=== PATIENT | male | born 1945 | race Caucasian/White ===

== ENCOUNTER 2018-06-08 19:43 | Inpatient (IN) | payer MEDICARE, BC ==
[~2018-06-08] VITALS: Ht 190.5 cm; Wt 111.6 kg
[2018-06-08 22:30] VITALS: BP 141/82
[2018-06-08 22:35] VITALS: BP 141/82
--- NOTE | 2018-06-08 22:50 | NUR ---
GPS-RN ADMITTED A 73-Y/O MALE, DIRECT ADMIT FROM [facility]. ON HOLD FOR 5150 DTO AND GD. PER HOLD PATIENT'S CALLED POLICE BECAUSE PATIENT WAS PARANOID, GRANDIOSE, ABUSIVE AND SAYING HE WAS GOD. UPON EVAL THERE, PT REPORTED TO BE CONFUSED, DISORIENTED AND UNABLE TO CARE FOR HIMSELF. UPON ADMISSION PATIENT APPEARS TO BE ALERT, ORIENTED X1, ANXIOUS, STATED HE DOES NOT RECALL BEING ABUSIVE TO HIS AND DOES NOT KNOW WHY HE IS ADMITTED. DENIES HALLUCINATIONS, SI, HI. NO ACUTE DISTRESS NOTED. CONTINENT OF BOWEL AND BLADDER. NO C/O PAIN OR DISCOMFORT AT THIS TIME. AMBULATORY WITH A STEADY GAIT. BELONGINGS INVENTORIED AND CHECKED FOR CONTRABAND. REVIEWED PATIENT'S RIGHTS AND VERBALIZED UNDERSTANDING. PATIENT IS UNDER THE PSYCHIATRIC CARE OF DR. RASCON, ORDERS OBTAINED, AND UNDER THE MEDICAL CARE OF JENNIFER EMERSON. NOTIFIED OF ADMISSION AND MED RECON TO BE DONE. SKIN NOTED MULTIPLE SCABBED AREAS AND BLISTER ON RIGHT LITTLE TOE, PATIENT STATES HE HAS NOT FALLEN BUT BLEEDS EASILY. MRSA SCREENING NEEDS TO BE DONE. BED LOCKED AND PLACED IN LOWEST POSITION. ROOM SAFETY CHECKED. FALL PRECAUTIONS MAINTAINED. WILL CONTINUE TO MONITOR Q15MIN ROUNDS FOR SAFETY AND BEHAVIOR. PT STATED HE WILL CALL AND NOTIFY HIS OF ADMISSION IN MORNING.
[2018-06-08] MEDS ORDERED: MAG HYDROX/AL HYDROX/SIMETH 30 ML UDC PO PRN (23:00)
[2018-06-08] MEDS ORDERED: MAGNESIUM HYDROXIDE 30 ML UDC PO PRN (23:00)
[2018-06-08] MEDS ORDERED: LORAZEPAM 0.5 MG TABLET PO PRN (23:00)
[2018-06-09] MEDS ORDERED: ATOR40TA PO (01:21)
[2018-06-09] MEDS ORDERED: ALLO100T PO (01:21)
[2018-06-09] MEDS ORDERED: ARMO250T2 PO (01:21)
[2018-06-09] MEDS ORDERED: LEVO137T24 PO (01:21)
[2018-06-09] MEDS ORDERED: ATOR20TA PO (01:21)
[2018-06-09] MEDS ORDERED: DIVA500T2 PO (01:21)
[2018-06-09] MEDS ORDERED: GABA-534 PO (01:21)
[2018-06-09] MEDS ORDERED: SOLI10TA2 PO (01:21)
[2018-06-09] MEDS ORDERED: RIVA10TA PO (01:21)
[2018-06-09 08:00] VITALS: BP 141/98
[2018-06-09 08:53] LABS: BASOPHILS % (AUTO) 0.4 % (0.0-2.0); EOSINOPHILS % (AUTO) 1.9 % (0.0-6.0); HEMATOCRIT 43 % (39-51); HEMOGLOBIN 14.1 g/dL (13.5-17.5); LYMPHOCYTES # (AUTO) 1.9 /CMM (0.8-4.8); LYMPHOCYTES % (AUTO) 28.9 % (20.0-44.0); MEAN CORPUSCULAR HEMOGLOBIN 32 PG (26.0-33.0); MEAN CORPUSCULAR HGB CONC 33 g/dl (31.0-36.0); MEAN CORPUSCULAR VOLUME 97 fL (80-96); MONOCYTES # (AUTO) 0.5 /CMM (0.1-1.30); MONOCYTES % (AUTO) 7.7 % (2.0-12.0); NEUTROPHILS # (AUTO) 4.1 /CMM (1.8-8.9); NEUTROPHILS % (AUTO) 61.1 % (43.0-81.0); PLATELET COUNT (AUTO) 204 /CMM (150-450); RDW COEFFICIENT OF VARIATION 14.8 (11.5-15.0); RED BLOOD CELL COUNT(AUTO) 4.46 MIL/uL (4.5-6.0); WHITE BLOOD COUNT (AUTO) 6.7 K/uL (4.3-11.0)
[2018-06-09] MEDS: ALLOPURINOL 100 MG TABLET PO SCH ×2 (08:57→16:22)
[2018-06-09] MEDS: LEVOTHYROXINE SODIUM 137 MCG TABLET PO SCH (08:57)
[2018-06-09] MEDS ORDERED: SOLIFENACIN SUCCINATE 5 MG TABLET PO SCH (09:00)
[2018-06-09] MEDS ORDERED: GABAPENTIN 300 MG CAPSULE PO SCH (09:00)
[2018-06-09 10:09] LABS: CHOLESTEROL 183 mg/dL (<200); HDL CHOLESTEROL 41 mg/dL (40-60); LDL 101 mg/dL (0-99); TRIGLYCERIDES 204 mg/dL (30-150)
[2018-06-09 10:10] LABS: ALANINE AMINOTRANSFERASE 30 U/L (12-78); ALBUMIN 3.4 g/dL (3.4-5.0); ALKALINE PHOSPHATASE 91 U/L (46-116); ASPARTATE AMINOTRANSFERASE 28 U/L (15-37); BILIRUBIN,TOTAL 0.4 mg/dL (0.2-1.0); CARBON DIOXIDE 31 mmol/L (21-32); CHLORIDE 103 mmol/L (98-107); CREATININE 1.5 mg/dL (0.6-1.3); GLUCOSE 140 mg/dL (74-106); POTASSIUM 4.7 mmol/L (3.5-5.1); SODIUM SERUM 141 mmol/L (136-145); TOTAL PROTEIN, SERUM 7.5 g/dL (6.4-8.2); UREA NITROGEN, BLOOD 28 mg/dL (7-18)
[2018-06-09] MEDS ORDERED: QUET100T PO (11:56)
[2018-06-09] MEDS ORDERED: MEMA1CAP3 PO (11:56)
[2018-06-09] MEDS ORDERED: CARI3CAP PO (11:56)
[2018-06-09] MEDS ORDERED: myrbetriq PO (11:56)
[2018-06-09] MEDS ORDERED: ALLO300T2 PO (11:56)
[2018-06-09] MEDS ORDERED: OMEP40CA37 PO (11:56)
[2018-06-09] MEDS: DIVALPROEX SODIUM 500 MG TABLET.DR PO SCH ×2 (12:44→21:39)
--- NOTE | 2018-06-09 14:10 | NUR ---
GPS/RN C-PAP MACHINE CHECKED BY RT AND FOUND TO BE OPERATIONAL. DR BURTON MADE AWARE OF THE PT'S NEED FOR C-PAP MACHINE AND APPROVED. THE BEHAVIOR CLINICIAN LINDA MADE AWARE OF NEED FOR THE SITTER AT NIGHT.
--- NOTE | 2018-06-09 14:52 | NUR ---
GPS RN NOTE: PT INSTRUCTED TO BRING HOME MEDICATIONS
[2018-06-09 16:11] VITALS: BP 114/66
[2018-06-09] MEDS: RIVAROXABAN 10 MG TABLET PO SCH (16:21)
[2018-06-09] MEDS: GABAPENTIN 300 MG CAPSULE PO SCH (16:22)
[2018-06-09] MEDS: MEMANTINE HCL 5 MG TABLET PO SCH (16:22)
[2018-06-09] MEDS: ATORVASTATIN 40 MG TABLET PO SCH (17:30)
[2018-06-09] MEDS: ACETAMINOPHEN 325 MG TABLET PO PRN (19:58)
[2018-06-09] MEDS ORDERED: CARIPRAZINE HCL 3 MG PO SCH (20:00)
[2018-06-09] MEDS ORDERED: Medication Not On Formulary EA (Memantine HCl/Donepezil HCl (Namzaric 28 mg-10 mg Capsul PO SCH (20:00)
[2018-06-09 20:03] VITALS: BP 125/55
--- NOTE | 2018-06-09 20:15 | NUR ---
GPS RN NOTE: PT ALERT ORIENTED X 3, CALM COOPERATIVE, FOCUSED ON RIGHT FOOT PAIN WITHOUT OTHER COMPLAINTS. DENIES SI/HI/HALLUCINATIONS. ICE PACK TO RIGHT FOOT FOR 15 MINUTES PRN. WILL CONTINUE TO MONITOR Q 15 FOR COMFORT AND SAFETY.
--- NOTE | 2018-06-09 21:00 | NUR ---
PT. C/O MILD PAIN 01/12 RT FOOT SWELLING, ICE PACKS APPLIED PER PT REQUEST AND TYLENOL 650MG PO PRN AT 1999 WITH RELIEF.
[2018-06-09] MEDS: DONEPEZIL 5 MG TABLET PO SCH (21:40)
[2018-06-09] MEDS: QUETIAPINE FUMARATE 100 MG TABLET PO SCH (21:40)
--- NOTE | 2018-06-09 22:30 | NUR ---
PT WITH OWN CPAP MACHINE FOR SLEEP WITH 1:1 SITTER PER GPS POLICY.
--- NOTE | 2018-06-10 06:52 | NUR ---
ICE PACKS PER PATIENT REQUEST TO RIGHT ANKLE FOR SWELLING.
[2018-06-10 08:00] VITALS: BP 122/78
[2018-06-10] MEDS: GABAPENTIN 300 MG CAPSULE PO SCH ×2 (08:48→17:31)
[2018-06-10] MEDS: DIVALPROEX SODIUM 500 MG TABLET.DR PO SCH ×2 (08:49→20:57)
[2018-06-10] MEDS: ALLOPURINOL 100 MG TABLET PO SCH ×2 (08:49→17:31)
[2018-06-10] MEDS: MEMANTINE HCL 5 MG TABLET PO SCH ×2 (08:49→17:31)
[2018-06-10] MEDS: OXYBUTYNIN CHLORIDE 5 MG TABLET PO SCH ×3 (08:49→17:32)
[2018-06-10] MEDS: LEVOTHYROXINE SODIUM 137 MCG TABLET PO SCH (08:50)
[2018-06-10] MEDS ORDERED: FUROSEMIDE 40 MG TABLET PO ONE (12:00)
[2018-06-10 16:10] VITALS: BP 155/83
[2018-06-10] MEDS: RIVAROXABAN 10 MG TABLET PO SCH (17:33)
[2018-06-10] MEDS: ATORVASTATIN 40 MG TABLET PO SCH (18:16)
[2018-06-10 19:58] VITALS: BP 138/64
[2018-06-10] MEDS: ACETAMINOPHEN 325 MG TABLET PO PRN (20:57)
[2018-06-10] MEDS: QUETIAPINE FUMARATE 100 MG TABLET PO SCH (21:22)
[2018-06-10] MEDS: DONEPEZIL 5 MG TABLET PO SCH (21:22)
[2018-06-11 08:00] VITALS: BP 143/99
[2018-06-11 08:11] VITALS: BP 143/99
[2018-06-11] MEDS: NUVIGIL 250 MG PO SCH (08:30)
[2018-06-11] MEDS: DIVALPROEX SODIUM 500 MG TABLET.DR PO SCH ×2 (08:34→20:49)
[2018-06-11] MEDS: GABAPENTIN 300 MG CAPSULE PO SCH ×2 (08:34→17:29)
[2018-06-11] MEDS: LEVOTHYROXINE SODIUM 137 MCG TABLET PO SCH (08:34)
[2018-06-11] MEDS: PANTOPRAZOLE 40 MG TABLET.DR PO SCH (08:34)
[2018-06-11] MEDS: MEMANTINE HCL 5 MG TABLET PO SCH ×2 (08:35→17:29)
[2018-06-11] MEDS: OXYBUTYNIN CHLORIDE 5 MG TABLET PO SCH ×3 (08:35→17:29)
[2018-06-11] MEDS: ALLOPURINOL 100 MG TABLET PO SCH ×2 (08:35→17:29)
--- NOTE | 2018-06-11 11:29 | NUR ---
INITIAL DISCHARGE PLAN: Patient wishes to return home to [address] [place] [address] [address] [facility] [address]. SW confirmed with pts Juan Antonio Richardson [phone] who stated pt can return home once stable for discharge. SW will help form a safe and proper discharge in collaboration with .
[2018-06-11] MEDS ORDERED: FUROSEMIDE 40 MG TABLET PO ONE (13:00)
[2018-06-11] MEDS ORDERED: POTASSIUM CHLORIDE 20 MEQ POWDER PACKET PO ONE (13:00)
[2018-06-11 16:00] VITALS: BP 164/97
[2018-06-11 16:13] VITALS: BP 164/97
[2018-06-11] MEDS: ATORVASTATIN 40 MG TABLET PO SCH (17:29)
[2018-06-11] MEDS: RIVAROXABAN 10 MG TABLET PO SCH (17:43)
--- NOTE | 2018-06-11 18:04 | NUR ---
RHYS MYBETRIC ORDER CANCELED PATIENT ON DITROPAN
[2018-06-11 19:58] VITALS: BP 143/75
[2018-06-11] MEDS: DONEPEZIL 5 MG TABLET PO SCH (21:12)
[2018-06-11] MEDS: QUETIAPINE FUMARATE 100 MG TABLET PO SCH (21:12)
[2018-06-12] MEDS: ZOLPIDEM TARTRATE 5 MG TABLET PO PRN (01:55)
[2018-06-12 08:00] VITALS: BP 120/72
[2018-06-12] MEDS: LEVOTHYROXINE SODIUM 137 MCG TABLET PO SCH (08:46)
[2018-06-12] MEDS: PANTOPRAZOLE 40 MG TABLET.DR PO SCH (08:47)
[2018-06-12] MEDS: GABAPENTIN 300 MG CAPSULE PO SCH ×2 (08:47→16:49)
[2018-06-12] MEDS: MEMANTINE HCL 5 MG TABLET PO SCH ×2 (08:47→16:50)
[2018-06-12] MEDS: OXYBUTYNIN CHLORIDE 5 MG TABLET PO SCH ×2 (08:47→12:00)
[2018-06-12] MEDS: DIVALPROEX SODIUM 500 MG TABLET.DR PO SCH ×2 (08:47→22:17)
[2018-06-12] MEDS: NUVIGIL 250 MG PO SCH (08:48)
[2018-06-12] MEDS ORDERED: HOME MED MISCELLANEOUS PO SCH (09:00)
[2018-06-12] MEDS: ALLOPURINOL 100 MG TABLET PO SCH ×2 (09:14→16:50)
[2018-06-12] MEDS ORDERED: POTASSIUM CHLORIDE 20 MEQ POWDER PACKET PO ONE (09:30)
[2018-06-12] MEDS ORDERED: FUROSEMIDE 40 MG TABLET PO ONE (09:30)
[2018-06-12 16:00] VITALS: BP 134/90
[2018-06-12] MEDS: RIVAROXABAN 10 MG TABLET PO SCH (16:54)
[2018-06-12] MEDS: ATORVASTATIN 40 MG TABLET PO SCH (18:26)
[2018-06-12 20:11] VITALS: BP 134/84
[2018-06-12] MEDS: DONEPEZIL 5 MG TABLET PO SCH (22:16)
[2018-06-12] MEDS: QUETIAPINE FUMARATE 100 MG TABLET PO SCH (22:17)
[2018-06-13 07:17] LABS: ALANINE AMINOTRANSFERASE 23 U/L (12-78); ALBUMIN 3.1 g/dL (3.4-5.0); ALKALINE PHOSPHATASE 81 U/L (46-116); ASPARTATE AMINOTRANSFERASE 16 U/L (15-37); BILIRUBIN,TOTAL 0.4 mg/dL (0.2-1.0); CALCIUM, SERUM 8.5 mg/dL (8.5-10.1); CARBON DIOXIDE 35 mmol/L (21-32); CHLORIDE 104 mmol/L (98-107); CREATININE 1.4 mg/dL (0.6-1.3); GLUCOSE 112 mg/dL (74-106); POTASSIUM 4.1 mmol/L (3.5-5.1); SODIUM SERUM 142 mmol/L (136-145); TOTAL PROTEIN, SERUM 6.6 g/dL (6.4-8.2); UREA NITROGEN, BLOOD 26 mg/dL (7-18)
[2018-06-13 08:00] VITALS: BP 136/80
[2018-06-13] MEDS: LEVOTHYROXINE SODIUM 137 MCG TABLET PO SCH (08:54)
[2018-06-13] MEDS: GABAPENTIN 300 MG CAPSULE PO SCH ×2 (08:54→16:46)
[2018-06-13] MEDS: DIVALPROEX SODIUM 500 MG TABLET.DR PO SCH ×2 (08:54→21:03)
[2018-06-13] MEDS: MEMANTINE HCL 5 MG TABLET PO SCH ×2 (08:54→16:47)
[2018-06-13] MEDS: PANTOPRAZOLE 40 MG TABLET.DR PO SCH (08:54)
[2018-06-13] MEDS: ALLOPURINOL 100 MG TABLET PO SCH ×2 (08:54→16:46)
[2018-06-13] MEDS: NUVIGIL 250 MG PO SCH (09:03)
[2018-06-13 16:00] VITALS: BP 140/99
[2018-06-13] MEDS: FUROSEMIDE 20 MG TABLET PO SCH (16:46)
[2018-06-13] MEDS: POTASSIUM CHLORIDE 10 MEQ TABLET.SA PO SCH (16:46)
[2018-06-13] MEDS: RIVAROXABAN 10 MG TABLET PO SCH (16:47)
[2018-06-13] MEDS: ATORVASTATIN 40 MG TABLET PO SCH (17:00)
[2018-06-13 20:00] VITALS: BP 115/67
[2018-06-13] MEDS: QUETIAPINE FUMARATE 100 MG TABLET PO SCH (21:03)
[2018-06-13] MEDS: DONEPEZIL 5 MG TABLET PO SCH (21:03)
[2018-06-14 08:00] VITALS: BP 122/79
[2018-06-14] MEDS: GABAPENTIN 300 MG CAPSULE PO SCH ×2 (08:33→17:53)
[2018-06-14] MEDS: ALLOPURINOL 100 MG TABLET PO SCH ×2 (08:33→17:54)
[2018-06-14] MEDS: POTASSIUM CHLORIDE 10 MEQ TABLET.SA PO SCH (08:34)
[2018-06-14] MEDS: PANTOPRAZOLE 40 MG TABLET.DR PO SCH (08:34)
[2018-06-14] MEDS: MEMANTINE HCL 5 MG TABLET PO SCH ×2 (08:34→17:53)
[2018-06-14] MEDS: LEVOTHYROXINE SODIUM 137 MCG TABLET PO SCH (08:34)
[2018-06-14] MEDS: NUVIGIL 250 MG PO SCH (08:35)
[2018-06-14] MEDS: DIVALPROEX SODIUM 500 MG TABLET.DR PO SCH ×2 (08:40→21:14)
[2018-06-14] MEDS: FUROSEMIDE 20 MG TABLET PO SCH (08:40)
[2018-06-14 16:04] VITALS: BP 129/81
[2018-06-14] MEDS: ATORVASTATIN 40 MG TABLET PO SCH (17:54)
[2018-06-14] MEDS: RIVAROXABAN 10 MG TABLET PO SCH (17:56)
[2018-06-14 20:00] VITALS: BP 145/69
[2018-06-14] MEDS: ZOLPIDEM TARTRATE 5 MG TABLET PO PRN (21:14)
[2018-06-14] MEDS: QUETIAPINE FUMARATE 100 MG TABLET PO SCH (21:14)
[2018-06-14] MEDS: DONEPEZIL 5 MG TABLET PO SCH (21:14)
[2018-06-15 08:07] VITALS: BP 135/81
[2018-06-15] MEDS: MEMANTINE HCL 5 MG TABLET PO SCH ×2 (08:26→16:38)
[2018-06-15] MEDS: FUROSEMIDE 20 MG TABLET PO SCH (08:27)
[2018-06-15] MEDS: POTASSIUM CHLORIDE 10 MEQ TABLET.SA PO SCH (08:28)
[2018-06-15] MEDS: ALLOPURINOL 100 MG TABLET PO SCH ×2 (08:28→16:38)
[2018-06-15] MEDS: GABAPENTIN 300 MG CAPSULE PO SCH ×2 (08:28→16:38)
[2018-06-15] MEDS: LEVOTHYROXINE SODIUM 137 MCG TABLET PO SCH (08:28)
[2018-06-15] MEDS: DIVALPROEX SODIUM 500 MG TABLET.DR PO SCH ×2 (08:28→21:24)
[2018-06-15] MEDS: NUVIGIL 250 MG PO SCH (08:31)
[2018-06-15] MEDS: PANTOPRAZOLE 40 MG TABLET.DR PO SCH (08:59)
[2018-06-15 16:00] VITALS: BP 134/87
[2018-06-15] MEDS: RIVAROXABAN 10 MG TABLET PO SCH (16:39)
[2018-06-15] MEDS: ATORVASTATIN 40 MG TABLET PO SCH (18:07)
[2018-06-15 20:30] VITALS: BP 145/79
--- NOTE | 2018-06-15 20:30 | NUR ---
RN NOTES RECEIVED PT. FROM GPS, ON HOLD, WITH SITTER, A/OX3, AMBULATE WITH ASSIST, DENIES PAIN, NO SOB, CALM AND COOPERATIVE, WILL CONTINUE TO MONITOR
[2018-06-15] MEDS: DONEPEZIL 5 MG TABLET PO SCH (21:24)
[2018-06-15] MEDS: QUETIAPINE FUMARATE 100 MG TABLET PO SCH (21:24)
[2018-06-15] MEDS: ZOLPIDEM TARTRATE 5 MG TABLET PO PRN (22:48)
--- NOTE | 2018-06-15 22:49 | NUR ---
RN NOTES PT. ASKED FOR SLEEPING PILL- AMBIEN 5 MG PO GIVEN ORDERED, V/S STABLE
--- NOTE | 2018-06-16 06:52 | NUR ---
RN NOTES SLEEPING BUT AROUSABLE, SITTER AT BEDSIDE, MORNING CARE RENDERED, PT NEEDS ATTENDED
[2018-06-16] MEDS: PANTOPRAZOLE 40 MG TABLET.DR PO SCH (07:30)
[2018-06-16] MEDS: GABAPENTIN 300 MG CAPSULE PO SCH ×2 (08:57→16:26)
[2018-06-16] MEDS: DIVALPROEX SODIUM 500 MG TABLET.DR PO SCH ×2 (08:58→21:23)
[2018-06-16] MEDS: FUROSEMIDE 20 MG TABLET PO SCH (08:58)
[2018-06-16] MEDS: POTASSIUM CHLORIDE 10 MEQ TABLET.SA PO SCH (08:58)
[2018-06-16] MEDS: ALLOPURINOL 100 MG TABLET PO SCH ×2 (08:58→16:25)
[2018-06-16] MEDS: MEMANTINE HCL 5 MG TABLET PO SCH ×2 (08:58→16:25)
[2018-06-16] MEDS: LEVOTHYROXINE SODIUM 137 MCG TABLET PO SCH (09:00)
[2018-06-16] MEDS: NUVIGIL 250 MG PO SCH (09:44)
--- NOTE | 2018-06-16 10:08 | NUR ---
RN OPENING NOTES RECEIVED PT. PT IS STABLE AND RESTING IN BED. NO S/S OF RESP DISTRESS OR SOB. NO C/O PAIN. PT IS GPS OVERFLOW WITH 1:1 SITTER AT BEDSIDE. SAFETY MEASURES IN PLACE, CALL LIGHT WITHIN REACH. WILL CONTINUE TO MONITOR.
[2018-06-16 16:23] VITALS: BP 156/74
[2018-06-16] MEDS: RIVAROXABAN 10 MG TABLET PO SCH (16:25)
[2018-06-16] MEDS: ATORVASTATIN 40 MG TABLET PO SCH (17:16)
--- NOTE | 2018-06-16 18:41 | NUR ---
RN CLOSING NOTE PT IN ROOM RESTING. 1:1 SITTER BEDSIDE. NO S/S OF SOB, NO C/O PAIN. PT REMAINS COMPLIANT WITH THERAPIES. SPENT MOST TIME IN ACTIVITY ROOM OF GPS UNIT THROUGHOUT DAY. SAFETY MEASURES IN PLACE, CALL LIGHT WITHIN REACH. WILL ENDORSE TO WEB FEEDER FOR FAROOQ.
--- NOTE | 2018-06-16 19:30 | NUR ---
RN NOTES RECEIVED PT. AWAKE ON BED, WITH AT BEDSIDE AND HIS FRIEND, CALM AND COOPERATIVE, A/OX3 WITH DELUSIONAL THOUGHTS" PT STATED THAT HIS ROOM ATE IS FRIEND OF SUPERMAN", CALL LIGHT WITHIN REACH, SIDERAILSUPX2, SITTER AT BEDSIDE, CONTINUE TO MONITOR
[2018-06-16 20:00] VITALS: BP 136/85
[2018-06-16] MEDS: DONEPEZIL 5 MG TABLET PO SCH (21:23)
[2018-06-16] MEDS: QUETIAPINE FUMARATE 100 MG TABLET PO SCH (21:23)
--- NOTE | 2018-06-17 00:17 | NUR ---
RN NOTES PT. REFUSED PHOTO ON HIS SKIN ISSUE
--- NOTE | 2018-06-17 06:55 | NUR ---
RN NOTES AWAKE, SITTER AT BEDSIDE, CALM, MORNING CARE RENDERED, PT. NEEDS ATTENDED
[2018-06-17] MEDS: MEMANTINE HCL 5 MG TABLET PO SCH ×2 (08:01→17:02)
[2018-06-17] MEDS: LEVOTHYROXINE SODIUM 137 MCG TABLET PO SCH (08:01)
[2018-06-17] MEDS: ALLOPURINOL 100 MG TABLET PO SCH ×2 (08:01→17:02)
[2018-06-17] MEDS: GABAPENTIN 300 MG CAPSULE PO SCH ×2 (08:01→17:02)
[2018-06-17] MEDS: DIVALPROEX SODIUM 500 MG TABLET.DR PO SCH ×2 (08:01→22:05)
[2018-06-17] MEDS: PANTOPRAZOLE 40 MG TABLET.DR PO SCH (08:01)
[2018-06-17] MEDS: POTASSIUM CHLORIDE 10 MEQ TABLET.SA PO SCH (08:01)
[2018-06-17] MEDS: NUVIGIL 250 MG PO SCH (08:02)
[2018-06-17] MEDS: FUROSEMIDE 20 MG TABLET PO SCH (08:05)
[2018-06-17] MEDS: QUETIAPINE FUMARATE 25 MG TABLET PO SCH ×2 (12:10→17:02)
[2018-06-17 16:42] VITALS: BP 102/57
[2018-06-17] MEDS: ATORVASTATIN 40 MG TABLET PO SCH (17:02)
[2018-06-17] MEDS: RIVAROXABAN 10 MG TABLET PO SCH (17:03)
--- NOTE | 2018-06-17 19:50 | NUR ---
RN OPENING NOTES RECEIVED REPORT FROM DAYSHIFT RN FRANDY. Pt RETURNED FROM GPS ACTIVITY ROOM. NO S/S OF ACUTE DISTRESS OR SOB NOTED. Pt IS A/OX2-3, VERBAL, ABLE TO MAKE NEEDS KNOWN. GPS OVERFLOW. VOLUNTARY HOLD. NO IV ACCESS. SITTER AT BEDSIDE. SAFETY MEASURES IN PLACE. BED LOW, LOCKED, HOB ELEVATED, & SIDE RAILS UP. WILL CONTINUE TO MONITOR Pt THROUGHOUT THE NIGHT FOR SAFETY.
[2018-06-17 20:00] VITALS: BP 131/70
[2018-06-17] MEDS: QUETIAPINE FUMARATE 100 MG TABLET PO SCH (22:06)
[2018-06-17] MEDS: DONEPEZIL 5 MG TABLET PO SCH (22:06)
[2018-06-17] MEDS: ZOLPIDEM TARTRATE 5 MG TABLET PO PRN (22:09)
--- NOTE | 2018-06-18 06:50 | NUR ---
RN CLOSING NOTES NO SIGNIFICANT CHANGES IN Pt's CONDITION. Pt REMAINS STABLE AT THIS TIME. NO S/S OF ACUTE DISTRESS OR SOB NOTED DURING THE NIGHT. ALL NEEDS MET AND ATTENDED TO. SAFETY MEASURES IN PLACE. BED LOW, LOCKED, HOB ELEVATED, & SIDE RAILS UP. WILL ENDORSE TO DAYSHIFT RN FOR Pt's FAROOQ.
[2018-06-18 08:00] VITALS: BP 104/68
--- NOTE | 2018-06-18 08:05 | NUR ---
RN OPENING NOTES PT AWAKE ALERT AND VERBALLY RESPONSIVE ABLE TO MAKE NEEDS, WITH FLIGHT OF IDEAS ABLE TO REORIENT. NO S/S OF ACUTE DISTRESS OR SOB NOTED,SITTER AT BEDSIDE. ALL NEEDS MET AND ATTENDED TO. SAFETY MEASURES IN PLACE. BED IN LOW, LOCKED, HOB ELEVATED, & SIDE RAILS UP. WILL CONTINUE TO MONITOR
[2018-06-18] MEDS: PANTOPRAZOLE 40 MG TABLET.DR PO SCH (08:49)
[2018-06-18] MEDS: LEVOTHYROXINE SODIUM 137 MCG TABLET PO SCH (08:49)
[2018-06-18] MEDS: GABAPENTIN 300 MG CAPSULE PO SCH ×2 (08:49→17:20)
[2018-06-18] MEDS: MEMANTINE HCL 5 MG TABLET PO SCH ×2 (08:49→17:20)
[2018-06-18] MEDS: ALLOPURINOL 100 MG TABLET PO SCH ×2 (08:50→17:20)
[2018-06-18] MEDS: FUROSEMIDE 20 MG TABLET PO SCH (08:50)
[2018-06-18] MEDS: QUETIAPINE FUMARATE 25 MG TABLET PO SCH ×3 (08:50→17:20)
[2018-06-18] MEDS: POTASSIUM CHLORIDE 10 MEQ TABLET.SA PO SCH (08:50)
[2018-06-18] MEDS: NUVIGIL 250 MG PO SCH (08:51)
[2018-06-18] MEDS: DIVALPROEX SODIUM 500 MG TABLET.DR PO SCH ×2 (10:15→22:37)
[2018-06-18 16:00] VITALS: BP 117/81
[2018-06-18] MEDS: ATORVASTATIN 40 MG TABLET PO SCH (17:20)
[2018-06-18] MEDS: RIVAROXABAN 10 MG TABLET PO SCH (17:33)
--- NOTE | 2018-06-18 18:28 | NUR ---
RN CLOSING NOTES PT AWAKE ALERT AND VERBALLY RESPONSIVE ABLE TO MAKE NEEDS, WITH FLIGHT OF IDEAS ABLE TO REORIENT. NO S/S OF ACUTE DISTRESS OR SOB NOTED,SITTER AT BEDSIDE. ALL NEEDS MET AND ATTENDED TO. SAFETY MEASURES IN PLACE. BED IN LOW, LOCKED, HOB ELEVATED, & SIDE RAILS UP. WILL CONTINUE TO MONITOR AND ENDORSE TO NEXT SHIFT FOR CONTINUITY OF CARE
[2018-06-18 19:45] LABS: APPEARANCE,URINE CLEAR (CLEAR); BILIRUBIN,URINE NEGATIVE (NEGATIVE); BLOOD, URINE TRACE Ery/uL (NEGATIVE); COLOR,URINE YELLOW (YELLOW); KETONES,URINE NEGATIVE (NEGATIVE); LEUKOCYTE ESTERASE ,URINE NEGATIVE (NEGATIVE); NITRITE, URINE NEGATIVE (NEGATIVE); PROTEIN,URINE NEGATIVE (NEGATIVE); UGLUCOSE NEGATIVE (NEGATIVE); UROBILINOGEN,URINE 0.2 EU/dL (0.2)
--- NOTE | 2018-06-18 19:45 | NUR ---
RN OPENING NOTES RECEIVED REPORT FROM DAYSAZFT RHYS CARRILLO. FOUND Pt AWAKE IN HIS ROOM, PLAYING CARDS. NO S/S OF ACUTE DISTRESS OR SOB NOTED. Pt IS A/OX2, VERBAL, ABLE TO MAKE NEEDS KNOWN. NO IV ACCESS. SITTER AT BEDSIDE. SAFETY MEASURES IN PLACE. BED LOW, LOCKED, HOB ELEVATED, & SIDE RAILS UP. WILL CONTINUE TO MONITOR Pt THROUGHOUT THE NIGHT FOR SAFETY.
[2018-06-18 20:00] VITALS: BP 150/89
[2018-06-18 20:13] LABS: BACTERIA,URINE None seen /HPF (None Seen); RBC,URINE 0-2 /HPF (0-2); SQUAMOUS EPITHELIAL CELL,UR Rare /HPF (None Seen); WBC,URINE 0-2 /HPF (0-3)
[2018-06-18] MEDS: QUETIAPINE FUMARATE 100 MG TABLET PO SCH (22:37)
[2018-06-18] MEDS: DONEPEZIL 5 MG TABLET PO SCH (22:38)
[2018-06-19 06:35] LABS: BASOPHILS % (AUTO) 0.5 % (0.0-2.0); EOSINOPHILS % (AUTO) 1.5 % (0.0-6.0); HEMATOCRIT 38 % (39-51); HEMOGLOBIN 12.8 g/dL (13.5-17.5); LYMPHOCYTES % (AUTO) 33.6 % (20.0-44.0); MEAN CORPUSCULAR HEMOGLOBIN 32 PG (26.0-33.0); MEAN CORPUSCULAR HGB CONC 34 g/dl (31.0-36.0); MEAN CORPUSCULAR VOLUME 96 fL (80-96); MONOCYTES # (AUTO) 0.5 /CMM (0.1-1.30); MONOCYTES % (AUTO) 8.7 % (2.0-12.0); NEUTROPHILS # (AUTO) 3.3 /CMM (1.8-8.9); NEUTROPHILS % (AUTO) 55.7 % (43.0-81.0); PLATELET COUNT (AUTO) 169 /CMM (150-450); RDW COEFFICIENT OF VARIATION 14.4 (11.5-15.0); RED BLOOD CELL COUNT(AUTO) 3.98 MIL/uL (4.5-6.0)
--- NOTE | 2018-06-19 06:50 | NUR ---
RN CLOSING NOTES NO SIGNIFICANT CHANGES IN Pt's CONDITION. Pt REMAINS STABLE AT THIS TIME. NO S/S OF ACUTE DISTRESS OR SOB NOTED DURING THE NIGHT. SITTER AT BEDSIDE. ALL NEEDS MET AND ATTENDED TO. SAFETY MEASURES IN PLACE. BED LOW, LOCKED, HOB ELEVATED, & SIDE RAILS UP. WILL ENDORSE TO DAYSHIFT RN FOR Pt's FAROOQ.
[2018-06-19 06:57] LABS: CALCIUM, SERUM 8.8 mg/dL (8.5-10.1); CARBON DIOXIDE 35 mmol/L (21-32); CHLORIDE 104 mmol/L (98-107); CREATININE 1.2 mg/dL (0.6-1.3); GLUCOSE 98 mg/dL (74-106); SODIUM SERUM 143 mmol/L (136-145); UREA NITROGEN, BLOOD 23 mg/dL (7-18)
[2018-06-19 08:00] VITALS: BP 141/79
[2018-06-19 08:21] VITALS: BP 141/79
[2018-06-19] MEDS: ALLOPURINOL 100 MG TABLET PO SCH ×2 (08:43→17:03)
[2018-06-19] MEDS: FUROSEMIDE 20 MG TABLET PO SCH (08:43)
[2018-06-19] MEDS: POTASSIUM CHLORIDE 10 MEQ TABLET.SA PO SCH (08:43)
[2018-06-19] MEDS: MEMANTINE HCL 5 MG TABLET PO SCH ×2 (08:43→17:03)
[2018-06-19] MEDS: GABAPENTIN 300 MG CAPSULE PO SCH ×2 (08:43→17:03)
[2018-06-19] MEDS: QUETIAPINE FUMARATE 25 MG TABLET PO SCH ×2 (08:43→17:03)
[2018-06-19] MEDS: NUVIGIL 250 MG PO SCH (08:44)
[2018-06-19] MEDS: PANTOPRAZOLE 40 MG TABLET.DR PO SCH (10:17)
[2018-06-19] MEDS: LEVOTHYROXINE SODIUM 137 MCG TABLET PO SCH (10:17)
[2018-06-19] MEDS: DIVALPROEX SODIUM 500 MG TABLET.DR PO SCH ×2 (10:37→21:23)
[2018-06-19 16:00] VITALS: BP 123/69
[2018-06-19] MEDS: RIVAROXABAN 10 MG TABLET PO SCH (17:04)
[2018-06-19] MEDS: ATORVASTATIN 40 MG TABLET PO SCH (17:05)
--- NOTE | 2018-06-19 19:30 | NUR ---
RN NOTES RECEIVED PATIENT UP IN BED AWAKE, AO X 2, ABLE TO MAKE NEEDS KNOWN. NO ACUTE DISTRESS NOTED. DENIES PAIN AT THIS TIME. DENIES SI/HI. SAFETY REMINDERS GIVEN. ON LOW BED WITH BILATERAL UPPER SIDE RAILS UP. CALL JOHNSON WITHIN EASY REACH. WILL CONTINUE TO MONITOR. SITTER AT BEDSIDE.
[2018-06-19 20:00] VITALS: BP 138/92
[2018-06-19] MEDS: DONEPEZIL 5 MG TABLET PO SCH (21:23)
[2018-06-19] MEDS: QUETIAPINE FUMARATE 100 MG TABLET PO SCH (21:23)
--- NOTE | 2018-06-20 06:00 | NUR ---
RN NOTES PATIENT IN BED ASLEEP, EASILY AROUSABLE. RESPIRATIONS EVEN. NO SIGNS OF PAIN NOTED. DUE MEDS GIVEN WITH NO ASE NOTED. NEEDS ATTENDED. KEPT CLEAN, DRY, COMFORTABLE. SAFETY PRECAUTIONS AND COMFORT MEASURES IN PLACE. WILL GIVE REPORT TO DAY SHIFT FOR CONTINUITY OF CARE.
--- NOTE | 2018-06-20 07:20 | NUR ---
RN NOTES PT IS SITTING UP IN BED, AWAKE AND ALERT, WITH SITTER AT BEDSIDE. PT ON RA, RESPIRATIONS ARE EVEN AND UNLABORED. NO IV ACCESS PER GPS PROTOCOL. NO SIGNS OF DISTRESS NOTED. SAFETY MEASURES ARE IN PLACE, CALL LIGHT IS IN REACH. WILL CONTINUE TO MONITOR.
[2018-06-20 08:00] VITALS: BP 118/77
[2018-06-20] MEDS ORDERED: KEY,NONCONTROL,TO KEEP IN PYXI 1 EA MC ONE (08:19)
[2018-06-20] MEDS: DIVALPROEX SODIUM 500 MG TABLET.DR PO SCH ×2 (08:22→21:40)
[2018-06-20] MEDS: MEMANTINE HCL 5 MG TABLET PO SCH ×2 (08:22→17:06)
[2018-06-20] MEDS: FUROSEMIDE 20 MG TABLET PO SCH (08:22)
[2018-06-20] MEDS: POTASSIUM CHLORIDE 10 MEQ TABLET.SA PO SCH (08:22)
[2018-06-20] MEDS: LEVOTHYROXINE SODIUM 137 MCG TABLET PO SCH (08:22)
[2018-06-20] MEDS: GABAPENTIN 300 MG CAPSULE PO SCH ×2 (08:22→17:06)
[2018-06-20] MEDS: QUETIAPINE FUMARATE 25 MG TABLET PO SCH ×2 (08:22→12:49)
[2018-06-20] MEDS: PANTOPRAZOLE 40 MG TABLET.DR PO SCH (08:22)
[2018-06-20] MEDS: ALLOPURINOL 100 MG TABLET PO SCH ×2 (08:23→17:06)
[2018-06-20] MEDS: NUVIGIL 250 MG PO SCH (08:23)
--- NOTE | 2018-06-20 14:00 | NUR ---
ZACK and met with pts Juan Antonio and pt to discuss placement options and discharge plan for pt. Pts stated that pt cannot return home and will need placement. SW will fax SNF referral to nursing homes near the pts home per 's request.
--- NOTE | 2018-06-20 14:32 | NUR ---
Per pts request SW faxed SNG referral to Cristela admissions consultant at [facility] Address: [facility] [place] [address] for review.
--- NOTE | 2018-06-20 14:42 | NUR ---
ZACK faxed SNF referral to [facility] Address: [address] [place] [address] fax: [phone] for review.
--- NOTE | 2018-06-20 14:48 | NUR ---
ZACK faxed SNF referral to Adrienne site coordinator at [facility] Address: [address] [place] [address] [address], [place] [address] for review.
--- NOTE | 2018-06-20 15:57 | NUR ---
ZACK faxed referral to Adrianna records coordinator at [facility] Address: [address] [facility], [place] [address] fax: [phone] fore review.
[2018-06-20] MEDS: ATORVASTATIN 40 MG TABLET PO SCH (17:06)
[2018-06-20] MEDS: QUETIAPINE FUMARATE 100 MG TABLET PO SCH ×2 (17:06→21:41)
[2018-06-20] MEDS: RIVAROXABAN 10 MG TABLET PO SCH (17:15)
--- NOTE | 2018-06-20 18:55 | NUR ---
RN NOTES PT IS SITTING UP IN BED, RESTING COMFORTABLY WITH SITTER AT BEDSIDE. PT ON RA, RESPIRATIONS ARE EVEN AND UNLABORED. NO IV ACCESS, PER GPS PROTOCOL. PT PROVIDED WITH SKIN CARE AND ALL PT NEEDS MET. NO SIGNS OF DISTRESS NOTED. SAFETY MEASURES ARE IN PLACE, CALL LIGHT IS IN REACH. WILL ENDORSE TO PROCEDURES ANALYST RN FOR CONTINUITY OF CARE.
[2018-06-20 20:00] VITALS: BP 110/72
--- NOTE | 2018-06-20 20:00 | NUR ---
GPS OV NURSE NOTES RECEIVED SITTING ON EDGE OF BED A/O X A/O X2-3,BREATHING NORMAL.WITH MULTIPLE DRY SKIN ABRASIONS ON LOWER LEGS.DENIES PAIN,SITTER AT BEDSIDE.VOLUNTARY STATUS.WILL CONTINUE TO MONITOR BEHAVIOR.
--- NOTE | 2018-06-20 21:30 | NUR ---
MS RN NOTES DUE PO MEDS GIVEN,TAKEN WELL.SITTER AT BEDSIDE.
[2018-06-20] MEDS: DONEPEZIL 5 MG TABLET PO SCH (21:40)
--- NOTE | 2018-06-21 01:00 | NUR ---
GPS OV RN NOTES AWAKE,OBSESS THAT HIS ROOM MATE HAS CELL PHONE AND HE DOESNT HAVE ONE,THAT HIS WAS AT HOME.EXPLAINED WHY IT WAS NOT ALLOWED DURING THE ADMISSION PROCESS IN GPS.
--- NOTE | 2018-06-21 02:00 | NUR ---
GPS OV RN NOTES OFFERED ATIVAN FOR ANXIETY BUT REFUSED.
--- NOTE | 2018-06-21 03:31 | NUR ---
GPS OV RN NOTES SLEEPING AT THIS TIME WITH CPAP IN USED FOR SLEEP APNEA
--- NOTE | 2018-06-21 06:00 | NUR ---
GPS OV RN NOTES SLEPT 6 HOURS AT [facility].TOOK SHOWER EARLY PER PATIENT REQUEST.CALM AND COOPERATIVE THIS TIME.WILL CONTINUE TO MONITOR BEHAVIOR.WILL ENDORSE TO DAY NURSE FOR FAROOQ.
[2018-06-21 08:00] VITALS: BP 130/71
--- NOTE | 2018-06-21 08:00 | NUR ---
GPS OV NURSE NOTES RECEIVED SITTING ON THE CHAIR A/O X2-3,BREATHING NORMAL.WITH MULTIPLE DRY SKIN ABRASIONS ON LOWER LEGS.DENIES PAIN,SITTER AT BEDSIDE.VOLUNTARY STATUS.WILL CONTINUE TO MONITOR BEHAVIOR.CALL LIGHT WITHIN REACH.
[2018-06-21] MEDS: LEVOTHYROXINE SODIUM 137 MCG TABLET PO SCH (08:18)
[2018-06-21] MEDS: POTASSIUM CHLORIDE 10 MEQ TABLET.SA PO SCH (08:18)
[2018-06-21] MEDS: ALLOPURINOL 100 MG TABLET PO SCH ×2 (08:18→18:38)
[2018-06-21] MEDS: QUETIAPINE FUMARATE 100 MG TABLET PO SCH ×4 (08:18→21:58)
[2018-06-21] MEDS: PANTOPRAZOLE 40 MG TABLET.DR PO SCH (08:18)
[2018-06-21] MEDS: GABAPENTIN 300 MG CAPSULE PO SCH ×2 (08:18→18:38)
[2018-06-21] MEDS: DIVALPROEX SODIUM 500 MG TABLET.DR PO SCH ×2 (08:18→20:42)
[2018-06-21] MEDS: MEMANTINE HCL 5 MG TABLET PO SCH ×2 (08:18→18:39)
[2018-06-21] MEDS: FUROSEMIDE 20 MG TABLET PO SCH (08:18)
[2018-06-21] MEDS ORDERED: KEY,NONCONTROL,TO KEEP IN PYXI 1 EA MC ONE (09:17)
[2018-06-21] MEDS: NUVIGIL 250 MG PO SCH (09:17)
--- NOTE | 2018-06-21 10:45 | NUR ---
ZACK faxed referral to Kimmie edi coordinator at [facility] Address: [facility] [place] [address], [place] [address] for review.
--- NOTE | 2018-06-21 11:13 | NUR ---
SW was contacted by Kimmie audio visual collections coordinator at [facility] Address: [facility] [place] [address], [place] [address] who stated pt has been accepted to their facility.
[2018-06-21 16:00] VITALS: BP 118/70
[2018-06-21] MEDS: ATORVASTATIN 40 MG TABLET PO SCH (18:39)
[2018-06-21] MEDS: RIVAROXABAN 10 MG TABLET PO SCH (18:41)
--- NOTE | 2018-06-21 19:30 | NUR ---
GPS OV RN NOTES RECEIVED SITTING ON BEDSIDE CHAIR,CONVERSANT,ABLE TO REMEMBER ISSUE LAST NIGHT.APOLOGIZED.SITTER AT BEDSIDE FOR SAFETY.CALL LIGHT IN REACH.NEEDS ANTICIPATED.
[2018-06-21 20:00] VITALS: BP 128/78
[2018-06-21 20:05] VITALS: BP 128/78
[2018-06-21] MEDS: DONEPEZIL 5 MG TABLET PO SCH (21:58)
--- NOTE | 2018-06-21 23:00 | NUR ---
GPS OV RN NOTES ON BED THIS TIME WITH CPAP IN USED.SITTER AT BEDSIDE.
--- NOTE | 2018-06-22 06:31 | NUR ---
GPS OV RN NOTES AWAKE,TALKING WITH SITTER.CALM,SLEPT 8 HOURS AT NIGHT.POSSIBLE D/C ON SUNDAY.
--- NOTE | 2018-06-22 07:30 | NUR ---
RN OPENING NOTES RECEIVED PATIENT IN BED AWAKE, IN STABLE CONDITION. A/OX 2-3, AMBULATORY. SITTER AT BEDSIDE FOR SAFETY. NO ACUTE DISTRESS, NO SOB. DENIED PAIN OR DISCOMFORT. NO IV SITE. KEPT PATIENT SAFE AND COMFORTABLE. BED IN LOW/LOCKED POSITION, SIDERAILS UPX2, CALL LIGHT IN REACH. WILL CONTINUE TO MONITOR ACCORDINGLY.
[2018-06-22 08:00] VITALS: BP 130/79
[2018-06-22] MEDS ORDERED: KEY,NONCONTROL,TO KEEP IN PYXI 1 EA MC ONE (08:12)
[2018-06-22] MEDS: NUVIGIL 250 MG PO SCH (08:13)
[2018-06-22] MEDS: DIVALPROEX SODIUM 500 MG TABLET.DR PO SCH ×2 (08:27→21:19)
[2018-06-22] MEDS: FUROSEMIDE 20 MG TABLET PO SCH (08:28)
[2018-06-22] MEDS: ALLOPURINOL 100 MG TABLET PO SCH ×2 (08:28→17:42)
[2018-06-22] MEDS: POTASSIUM CHLORIDE 10 MEQ TABLET.SA PO SCH (08:28)
[2018-06-22] MEDS: MEMANTINE HCL 5 MG TABLET PO SCH ×2 (08:28→17:43)
[2018-06-22] MEDS: QUETIAPINE FUMARATE 100 MG TABLET PO SCH ×4 (08:29→21:19)
[2018-06-22] MEDS: PANTOPRAZOLE 40 MG TABLET.DR PO SCH (08:29)
[2018-06-22] MEDS: GABAPENTIN 300 MG CAPSULE PO SCH ×2 (08:29→17:43)
[2018-06-22] MEDS: LEVOTHYROXINE SODIUM 137 MCG TABLET PO SCH (08:29)
[2018-06-22 16:00] VITALS: BP 119/67
[2018-06-22] MEDS: ATORVASTATIN 40 MG TABLET PO SCH (17:43)
[2018-06-22] MEDS: RIVAROXABAN 10 MG TABLET PO SCH (17:44)
--- NOTE | 2018-06-22 19:01 | NUR ---
RN CLOSING NOTES PATIENT IN STABLE CONDITION. ALL NEEDS ATTENDED AND PROVIDED. SITTER ON BEDSIDE FOR SAFETY. KEPT PATIENT SAFE AND COMFORTABLE. BED IN LOW/LOCKED POSITION, SIDERAILS UPX2, CALL LIGHT IN REACH. ENDORSED TO NIGHT RN FOR FAROOQ.
[2018-06-22 20:00] VITALS: BP 108/76
--- NOTE | 2018-06-22 20:00 | NUR ---
RN INITIAL NOTES: PT SITTING ON A CHAIR, SITTER AT BED SIDE, PT A/O X2, COOPERATIVE, WELL GROOMED, LOVES TO TALK A LOT, DENIES ANY SI/HI, DENIES ANY PAIN OR DISCOMFORT AT THIS TIME,HE STATED "IM SO HAPPY TODAY I WILL BE LEAVING ON SUNDAY". PT REPORTED MED COMPLIANT. SAFETY PRECAUTIONS FOR FALL INITIATED, WILL CONTINUE MONITORING PT FOR SAFETY [id number] AND FOR ANY CHANGES IN BEHAVIOR
[2018-06-22] MEDS: DONEPEZIL 5 MG TABLET PO SCH (21:19)
--- NOTE | 2018-06-23 06:45 | NUR ---
RN CLOSING NOTES: PT IN BED, AWAKE, REMAINS A/O X2-3, REMAINS PLEASANT, COOPERATIVE, AND MEDICATION COMPLIANT, WELL-GROOMED. SITTER AT BED SIDE.NO IV ACCESS PER GPS POLICY. HAD TOTAL OF 8HRS OF SLEEP.VS REMAINS STABLE, NEEDS ATTENDED. SAFETY PRECAUTIONS FOR FALL REMAINS ENGAGED, CALL LIGHT IN REACH, WILL ENDORSE TO DAY RN FOR FAROOQ.
[2018-06-23 08:00] VITALS: BP 124/87
--- NOTE | 2018-06-23 08:03 | NUR ---
MS RN OPENING NOTES RECEIVED PT STANDING IN ROOM WAITING FOR BREAKFAST WITH SITTER AT BEDSIDE. PT IS A/O X2-3, AFEBRILE. RESPIRATIONS ARE EVEN AND UNLABORED, NOT IN ANY ACUTE DISTRESS NOTED. PT DENIES ANY PAIN AT THIS TIME, NO N/V OR SOB NOTED. NO IV ACCESS. SAFETY MEASURES ARE IN PLACE. WILL CONTINUE TO MONITOR THROUGHOUT SHIFT FOR CONTINUITY OF CARE.
[2018-06-23] MEDS: PANTOPRAZOLE 40 MG TABLET.DR PO SCH (08:27)
[2018-06-23] MEDS: DIVALPROEX SODIUM 500 MG TABLET.DR PO SCH ×2 (08:27→21:57)
[2018-06-23] MEDS: QUETIAPINE FUMARATE 100 MG TABLET PO SCH ×4 (08:27→21:57)
[2018-06-23] MEDS: ALLOPURINOL 100 MG TABLET PO SCH ×2 (08:28→17:08)
[2018-06-23] MEDS: LEVOTHYROXINE SODIUM 137 MCG TABLET PO SCH (08:28)
[2018-06-23] MEDS: FUROSEMIDE 20 MG TABLET PO SCH (08:28)
[2018-06-23] MEDS: MEMANTINE HCL 5 MG TABLET PO SCH ×2 (08:28→17:08)
[2018-06-23] MEDS: POTASSIUM CHLORIDE 10 MEQ TABLET.SA PO SCH (08:28)
[2018-06-23] MEDS: GABAPENTIN 300 MG CAPSULE PO SCH ×2 (08:28→17:08)
[2018-06-23] MEDS ORDERED: KEY,NONCONTROL,TO KEEP IN PYXI 1 EA MC ONE (09:58)
[2018-06-23] MEDS: NUVIGIL 250 MG PO SCH (09:59)
[2018-06-23] MEDS: ATORVASTATIN 40 MG TABLET PO SCH (17:08)
[2018-06-23] MEDS: RIVAROXABAN 10 MG TABLET PO SCH (17:12)
--- NOTE | 2018-06-23 18:13 | NUR ---
MS RN CLOSING NOTES ALL DUE MEDS GIVEN, NEEDS MET AND ANTICIPATED. PT REMAINS A/O X2-3, AFEBRILE. RESPIRATIONS ARE EVEN AND UNLABORED, NOT IN ANY ACUTE DISTRESS NOTED. PT DENIES ANY PAIN, N/V, SOB. NO IV ACCESS. ENCOURAGED PT TO DRINK FLUIDS TOLERATED. SAFETY MEASURES ARE IN PLACE. SITTER AT BEDSIDE FOR SAFETY REASONS. WILL ENDORSE TO NEXT SHIFT FOR CONTINUITY OF CARE.
--- NOTE | 2018-06-23 19:40 | NUR ---
RN GPS OV OPENING NOTES RECEIVED REPORT FROM DAYSHIFT RHYS TATE. FOUND Pt AWAKE, SITTING IN CHAIR WATCHING TV. Pt IS A/OX2-3, IS VERBAL, AND ABLE TO MAKE NEEDS KNOWN. NO S/S OF ACUTE DISTRESS OR SOB NOTED. NO C/O PAIN AT THIS TIME. NO IV ACCESS PER GPS POLICY. SITTER AT BEDSIDE. Pt WILL BE DISCHARGED ON SUNDAY. SAFETY MEASURES IN PLACE. BED LOW, LOCKED, HOB ELEVATED, SIDE RAILS UP FOR SAFETY. WILL CONTINUE TO MONITOR Pt THROUGHOUT THE NIGHT FOR SAFETY.
[2018-06-23 20:00] VITALS: BP 120/73
[2018-06-23] MEDS: DONEPEZIL 5 MG TABLET PO SCH (21:57)
--- NOTE | 2018-06-24 06:35 | NUR ---
RN CLOSING NOTES NO SIGNIFICANT CHANGES IN Pt's CONDITION. Pt REMAINS STABLE AT THIS TIME. NO S/S OF ACUTE DISTRESS OR SOB NOTED DURING THE NIGHT. ALL NEEDS MET AND ATTENDED TO. SAFETY MEASURES IN PLACE. BED LOW, LOCKED, HOB ELEVATED, & SIDE RAILS UP. SITTER AT BEDSIDE. Pt IS GOING TO BE DISCHARGED TODAY. WILL ENDORSE TO DAYSHIFT RN FOR Pt's FAROOQ.
[2018-06-24 07:20] LABS: CALCIUM, SERUM 8.5 mg/dL (8.5-10.1); CARBON DIOXIDE 32 mmol/L (21-32); CHLORIDE 101 mmol/L (98-107); CREATININE 1.4 mg/dL (0.6-1.3); GLUCOSE 157 mg/dL (74-106); POTASSIUM 3.9 mmol/L (3.5-5.1); SODIUM SERUM 141 mmol/L (136-145)
[2018-06-24 07:23] LABS: BASOPHILS % (AUTO) 0.3 % (0.0-2.0); EOSINOPHILS % (AUTO) 1.6 % (0.0-6.0); HEMATOCRIT 43 % (39-51); HEMOGLOBIN 13.4 g/dL (13.5-17.5); LYMPHOCYTES % (AUTO) 34.4 % (20.0-44.0); MEAN CORPUSCULAR HEMOGLOBIN 30 PG (26.0-33.0); MEAN CORPUSCULAR HGB CONC 31 g/dl (31.0-36.0); MEAN CORPUSCULAR VOLUME 97 fL (80-96); MONOCYTES # (AUTO) 0.3 /CMM (0.1-1.30); MONOCYTES % (AUTO) 5.7 % (2.0-12.0); NEUTROPHILS # (AUTO) 3.5 /CMM (1.8-8.9); PLATELET COUNT (AUTO) 216 /CMM (150-450); RDW COEFFICIENT OF VARIATION 14.3 (11.5-15.0); RED BLOOD CELL COUNT(AUTO) 4.41 MIL/uL (4.5-6.0); WHITE BLOOD COUNT (AUTO) 5.9 K/uL (4.3-11.0)
[2018-06-24 07:35] LABS: UREA NITROGEN, BLOOD 22 mg/dL (7-18)
[2018-06-24 08:00] VITALS: BP 130/75
[2018-06-24] MEDS ORDERED: KEY,NONCONTROL,TO KEEP IN PYXI 1 EA MC ONE (08:13)
[2018-06-24] MEDS: POTASSIUM CHLORIDE 10 MEQ TABLET.SA PO SCH (08:22)
[2018-06-24] MEDS: MEMANTINE HCL 5 MG TABLET PO SCH (08:23)
[2018-06-24] MEDS: GABAPENTIN 300 MG CAPSULE PO SCH (08:23)
[2018-06-24] MEDS: ALLOPURINOL 100 MG TABLET PO SCH (08:23)
[2018-06-24] MEDS: LEVOTHYROXINE SODIUM 137 MCG TABLET PO SCH (08:23)
[2018-06-24] MEDS: DIVALPROEX SODIUM 500 MG TABLET.DR PO SCH (08:23)
[2018-06-24] MEDS: FUROSEMIDE 20 MG TABLET PO SCH (08:23)
[2018-06-24] MEDS: PANTOPRAZOLE 40 MG TABLET.DR PO SCH (08:24)
[2018-06-24] MEDS: QUETIAPINE FUMARATE 100 MG TABLET PO SCH (08:26)
[2018-06-24] MEDS: NUVIGIL 250 MG PO SCH (09:00)
--- NOTE | 2018-06-24 12:00 | NUR ---
RN NOTES CIRCUS AGENT REPORTED THAT SHE SAW A SMALL SMEAR OF BLOOD IN THE DIAPER. CHECKED PATIENT, NO ACTIVE BLEEDING, PATIENT ASYMPTOMATIC. CARLA RIBERA NP ON THE UNIT AND BEEN NOTIFIED. NO NEW ORDERS NOTED. PER GOGO, CONTINUE PATIENT DISCHARGE, AND MAKE HIM FOLLOW UP WITH PCP.
--- NOTE | 2018-06-24 13:00 | NUR ---
DISCHARGED PATIENT IN STABLE CONDITION, PICKED UP BY AUDIO VIDEO REPAIRER. DISCHARGE PAPERWORK GIVEN TO AUDIO VIDEO REPAIRER, ALL BELONGINGS RETURNED, FORM SIGNED. ALL HOME MEDICATIONS WAS ALSO HANDED TO AUDIO VIDEO REPAIRER. REPORT GIVEN TO GAY AT [facility]. NAME BAND REMOVED. SKIN PHOTOS TAKEN.
--- NOTE | 2018-06-24 13:39 | NUR ---
DISCHARGE NOTE: Pt was discharged at 12:30pm via [facility] ambulance trip # [phone] to [facility] Address: [address] [place] [address] . Pt Juan Antonio [phone] was notified and agreed with discharge plan. Pts mood was happy with congruent affect and denied suicidal/homicidal ideations and denied visual/auditory hallucinations. Pt will be under the medical care of Psychiatrist: Dr. Ashleigh Hutton [address] [facility] [address], [place] [address] [phone] and Bobbin Presser: Dr. Erick Coats [address] [facility] [address], [place] [address] [phone]. The multidisciplinary exitcare form was done, printed, signed, and given to the patient.
== END 2018-06-24 14:40 | DRG 885 ==
LOC: GPS 22:10 → GPSOV2 06-15 20:19
PROVIDERS: ADMIT Psychiatry & Neurology Psychiatry; ATTEND Psychiatry & Neurology Psychiatry
DX: F31.64 Bipolar disorder, current episode mixed, severe, with psychotic features (principal); N17.0 Acute kidney failure with tubular necrosis; N18.9 Chronic kidney disease, unspecified; I11.0 Hypertensive heart disease with heart failure; I50.33 Acute on chronic diastolic (congestive) heart failure; D68.59 Other primary thrombophilia; F03.91 Unspecified dementia, unspecified severity, with behavioral disturbance; I13.0 Hypertensive heart and chronic kidney disease with heart failure and stage 1 through stage 4 chronic kidney disease, or unspecified chronic kidney disease; E03.9 Hypothyroidism, unspecified; I48.2 Chronic atrial fibrillation; I25.10 Atherosclerotic heart disease of native coronary artery without angina pectoris; Z95.0 Presence of cardiac pacemaker; Z87.891 Personal history of nicotine dependence; Z79.899 Other long term (current) drug therapy; Z79.01 Long term (current) use of anticoagulants; Z68.31 Body mass index [BMI] 31.0-31.9, adult; N32.81 Overactive bladder; E78.5 Hyperlipidemia, unspecified; M72.2 Plantar fascial fibromatosis; Z74.09 Other reduced mobility; E66.01 Morbid (severe) obesity due to excess calories; T14.8XXA Other injury of unspecified body region, initial encounter; X58.XXXA Exposure to other specified factors, initial encounter; Y92.9 Unspecified place or not applicable; F29 Unspecified psychosis not due to a substance or known physiological condition; G47.33 Obstructive sleep apnea (adult) (pediatric); C61 Malignant neoplasm of prostate; R32 Unspecified urinary incontinence; M77.30 Calcaneal spur, unspecified foot
CPT/HCPCS: 36415; 73610-TC; 80048-TC; 80053-TC; 80061-TC; 80164-TC; 81000-TC; 85025-TC; 87081-TC; 93307-TC; A4606; A6402; Z7610